=== PATIENT | male | born 1970 | race Caucasian/White ===

== ENCOUNTER 2018-11-05 11:59 | Day surgery (SDC) | payer OTHER ==
[~2018-11-05] VITALS: Ht 185.4 cm; Wt 140.6 kg
[~2018-11-05 11:59] MED LIST: CARB200CAP PO; CARB300C PO; KEPP1TAB2 PO; LOSA100T50; NS 1,000 ML IV ONE
[2018-11-05] MEDS ORDERED: LIDOCAINE 2% INJ 100 MG/5 ML SDV (FOR ANES.) As Ordered ONE (12:04)
[2018-11-05] MEDS ORDERED: PROPOFOL 200 MG/20 ML VIAL As Ordered ONE ×2 (12:04→13:27)
--- NOTE | 2018-11-05 13:50 | ROOR ---
Patient Name: Adolfo Aguero Procedure Date: 11/05/2018 1:19 PM Date of : 1970 Age: 48 Room: [facility] Gender: Male Note Status: Finalized Procedure: Colonoscopy Indications: Screening for colorectal malignant neoplasm Providers: Grey CASTILLO MD Referring MD: BETTY CHILEL DO Requesting Provider: Medicines: Monitored Anesthesia Care Complications: No immediate complications. Procedure: Pre-Anesthesia Assessment: - The heart rate, respiratory rate, oxygen saturations, blood pressure, adequacy of pulmonary ventilation, and response to care were monitored throughout the procedure. The Colonoscope was introduced through the anus and advanced to the cecum, identified by appendiceal orifice and ileocecal valve. The colonoscopy was performed without difficulty. The patient tolerated the procedure well. The quality of the bowel preparation was suboptimal/fair after extensive lavage. Findings: The perianal and digital rectal examinations were normal. (EXAM: Complete, PREP: Suboptimal) Three sessile polyps were found in the hepatic flexure and ascending colon. The polyps were 4 to 5 mm in size. These polyps were removed with a cold snare. Resection and retrieval were complete. Three sessile polyps were found in the descending colon and splenic flexure. The polyps were 4 to 5 mm in size. These polyps were removed with a cold snare. Resection and retrieval were complete. Two sessile polyps were found in the sigmoid colon. The polyps were 4 to 6 mm in size. These polyps were removed with a cold snare. Resection and retrieval were complete. The exam was otherwise without abnormality on direct and retroflexion views. Impression: - (EXAM: Complete, PREP: Suboptimal) - Three 4 to 5 mm polyps at the hepatic flexure and in the ascending colon, removed with a cold snare. Resected and retrieved. - Three 4 to 5 mm polyps in the descending colon and at the splenic flexure, removed with a cold snare. Resected and retrieved. - Two 4 to 6 mm polyps in the sigmoid colon, removed with a cold snare. Resected and retrieved. - The examination was otherwise normal on direct and retroflexion views. Recommendation: - Repeat colonoscopy in 2 years because the bowel preparation was suboptimal. - (Rec alternate colon preparation for next colonoscopy) Grey Castillo MD Grey CASTILLO MD 11/05/2018 1:49:42 PM Electronically signed by Grey CASTILLO MD Number of Addenda: 0 Note Initiated On: 11/05/2018 1:19 PM Estimated Blood Loss: Estimated blood loss: none.
[2018-11-05 14:10] VITALS: BP 140/97
== END 2018-11-05 14:17 | disposition home or self-care (01) ==
LOC: M OPP 11:59
PROVIDERS: ATTEND Internal Medicine Gastroenterology
DX: Z12.11 Encounter for screening for malignant neoplasm of colon (principal); D12.2 Benign neoplasm of ascending colon; D12.4 Benign neoplasm of descending colon; D12.3 Benign neoplasm of transverse colon; D12.5 Benign neoplasm of sigmoid colon; Z79.899 Other long term (current) drug therapy

== ENCOUNTER 2022-06-07 19:16 | Emergency (ER) | payer OTHER ==
[~2022-06-07] VITALS: Ht 185.4 cm; Wt 104.5 kg
[~2022-06-07 19:16] MED LIST changes: +LOSA100T45; -LOSA100T50; -NS 1,000 ML IV ONE
[2022-06-07 20:30] VITALS: BP 166/101
== END 2022-06-07 20:49 | disposition home or self-care (01) ==
LOC: M ED 19:16 → EDBD 19:16 → M ED 20:49
DX: Z04.1 Encounter for examination and observation following transport accident (principal); S00.01XA Abrasion of scalp, initial encounter; V89.2XXA Person injured in unspecified motor-vehicle accident, traffic, initial encounter; R56.9 Unspecified convulsions; Z79.899 Other long term (current) drug therapy; Z86.69 Personal history of other diseases of the nervous system and sense organs

== ENCOUNTER 2022-09-26 13:21 | Observation (INO) | payer OTHER ==
[~2022-09-26] VITALS: Ht 185.4 cm; Wt 148.2 kg
[~2022-09-26 13:21] MED LIST changes: -LOSA100T45; +LOSA100T46 PO
[2022-09-26] MEDS ORDERED: LIDOCAINE 1% MDV 20ML VIAL SC ONE (13:50)
[2022-09-26] MEDS ORDERED: LIDOCAINE 1% MDV 20ML VIAL As Ordered ONE (13:50)
[2022-09-26 14:08] LABS: BASO # 0.1 10^3/uL (0.0-0.2); BASO % 0.5 % (0.0-1.0); EOS # 0.1 10^3/uL (0.0-0.5); EOS % 1.5 % (0.0-3.0); HEMATOCRIT 41.6 % (42.0-52.0); LYMPH % 10.2 % (24.0-44.0); MEAN CORPUSCULAR HGB CONC 33.7 g/dl (32.0-36.5); MONO # 0.8 10^3/uL (0.0-0.8); MONO % 8.4 % (2.0-8.0); NEUTROPHILS # 7.4 10^3/uL (1.5-8.5); NEUTROPHILS % 78.8 % (36.0-66.0); PLATELET COUNT, AUTOMATED 176 10^3/uL (150-450); RED BLOOD COUNT 4.52 10^6/uL (4.30-6.10); WHITE BLOOD COUNT 9.4 10^3/uL (4.0-10.0)
[2022-09-26 14:34] LABS: ALBUMIN 4.1 G/DL (3.2-5.2); ALKALINE PHOSPHATASE 120 U/L (46-116); ALT/SGPT 26 U/L (7.0-40); AST/SGOT 18 U/L (<34); BILIRUBIN,DIRECT 0.2 MG/DL (<0.4); BILIRUBIN,TOTAL 0.5 MG/DL (0.3-1.2); BLOOD UREA NITROGEN 9 MG/DL (9-23); CALCIUM LEVEL 8.3 MG/DL (8.5-10.1); CARBON DIOXIDE LEVEL 29 MMOL/L (20-31); CHLORIDE LEVEL 104 MMOL/L (98-107); CREATININE FOR GFR 1.11 MG/DL (0.70-1.30); GLOMERULAR FILTRATION RATE > 60.0 (>56); GLUCOSE, FASTING 106 MG/DL (60-100); MAGNESIUM LEVEL 2.1 MG/DL (1.8-2.4); PHOSPHORUS LEVEL 3.1 MG/DL (2.5-4.9); POTASSIUM SERUM 4.4 MMOL/L (3.5-5.1); SODIUM LEVEL 139 MMOL/L (136-145); TOTAL PROTEIN 6.9 G/DL (5.7-8.2)
[2022-09-26] MEDS ORDERED: LABETALOL 100MG/20ML VIAL IV STA (15:41)
[2022-09-26 16:14] VITALS: BP 172/104
[2022-09-26] MEDS ORDERED: methylPREDNISolone 125MG 2ML VIAL IV ONE (17:10)
[2022-09-26] MEDS ORDERED: levETIRAcetam 250MG TABLET (KEPPRA) PO ONE (18:00)
[2022-09-26] MEDS ORDERED: PILL CUTTER 1 EACH XX ONE (18:12)
[2022-09-26] MEDS ORDERED: ACETAMINOPHEN TAB 650MG DOSE (2X325MG) PO PRN (18:25)
[2022-09-26] MEDS ORDERED: MORPHINE 2 MG/ML 1ML VIAL IV PRN (18:25)
[2022-09-26] MEDS ORDERED: HOME MED LIST COMPLETE! XX SCH (18:35)
[2022-09-26 19:12] LABS: RSV AMPLIFICATION NEGATIVE (NEGATIVE)
[2022-09-26 20:01] LABS: INR 0.97; PARTIAL THROMBOPLASTIN TIME 24.3 SECONDS (24.8-34.2); PROTHROMBIN TIME 13.1 SECONDS (12.5-14.5)
[2022-09-26 20:35] VITALS: BP 141/88
[2022-09-26] MEDS ORDERED: carBAMazepine XR 100 MG TAB PO SCH (21:00)
[2022-09-26] MEDS: carBAMazepine XR 200 MG TAB PO SCH (21:05)
[2022-09-27 00:22] VITALS: BP 133/68
[2022-09-27 04:29] VITALS: BP 137/71
[2022-09-27 06:38] LABS: HEMATOCRIT 38.2 % (42.0-52.0); HEMOGLOBIN 13.1 g/dl (13.5-17.5); MEAN CORPUSCULAR HEMOGLOBIN 31.6 pg (27.0-33.0); MEAN CORPUSCULAR HGB CONC 34.3 g/dl (32.0-36.5); MEAN CORPUSCULAR VOLUME 92.3 fl (80.0-96.0); PLATELET COUNT, AUTOMATED 165 10^3/uL (150-450); RED BLOOD COUNT 4.14 10^6/uL (4.30-6.10); WHITE BLOOD COUNT 8.5 10^3/uL (4.0-10.0)
[2022-09-27 07:13] LABS: ALBUMIN 3.6 G/DL (3.2-5.2); ALKALINE PHOSPHATASE 106 U/L (46-116); ALT/SGPT 26 U/L (7.0-40); AST/SGOT 19 U/L (<34); BILIRUBIN,TOTAL 0.7 MG/DL (0.3-1.2); BLOOD UREA NITROGEN 14 MG/DL (9-23); CALCIUM LEVEL 8.3 MG/DL (8.5-10.1); CARBON DIOXIDE LEVEL 26 MMOL/L (20-31); CHLORIDE LEVEL 104 MMOL/L (98-107); CREATININE FOR GFR 0.93 MG/DL (0.70-1.30); GLOMERULAR FILTRATION RATE > 60.0 (>56); GLUCOSE, FASTING 125 MG/DL (60-100); POTASSIUM SERUM 4.5 MMOL/L (3.5-5.1); SODIUM LEVEL 138 MMOL/L (136-145); TOTAL PROTEIN 6.4 G/DL (5.7-8.2)
[2022-09-27] MEDS ORDERED: ACET1TAB55 PO (07:15)
[2022-09-27] MEDS ORDERED: KEPP1TAB2 PO (07:15)
[2022-09-27] MEDS ORDERED: PRED20TA PO (07:15)
[2022-09-27 07:52] VITALS: BP 129/81
[2022-09-27] MEDS: carBAMazepine XR 200 MG TAB PO SCH (08:37)
[2022-09-27] MEDS ORDERED: levETIRAcetam 250MG TABLET (KEPPRA) PO SCH (09:00)
[2022-09-27] MEDS ORDERED: LOSARTAN 50MG TABLET PO SCH (09:00)
== END 2022-09-27 10:17 | disposition home or self-care (01) ==
LOC: M ED 13:21 → M ED INP 13:22 → M PCU 20:14
PROVIDERS: ADMIT Internal Medicine; ATTEND Internal Medicine
DX: G40.801 Other epilepsy, not intractable, with status epilepticus (principal); S01.112A Laceration without foreign body of left eyelid and periocular area, initial encounter; S12.8XXA Fracture of other parts of neck, initial encounter; W19.XXXA Unspecified fall, initial encounter; Y92.89 Other specified places as the place of occurrence of the external cause; Y99.0 Civilian activity done for income or pay; R13.10 Dysphagia, unspecified; I10 Essential (primary) hypertension; Z79.899 Other long term (current) drug therapy; Z79.52 Long term (current) use of systemic steroids; Y93.9 Activity, unspecified
CPT/HCPCS: 12011; 36415; 70450; 71045; 72125; 80048; 80053; 80076; 80156; 80180; 83735; 84100; 85025; 85027; 85610; 85730; 87631; 92526; 92610; 93005; 93041; 94760; 96372; 96374; 96375; 96376; 99285; J1100; J2930

== ENCOUNTER 2023-12-04 06:45 | Day surgery (SDC) | payer OTHER ==
[~2023-12-04] VITALS: Ht 185.4 cm; Wt 152.2 kg
[~2023-12-04 06:45] MED LIST changes: +ACET1TAB55 PO; +CARB200C4 PO; +HYDR12.55 PO; +MIDA5SPR; +PRED20TA PO
[2023-12-04] MEDS ORDERED: LIDOCAINE 2% 100MG/5ML SDV (FOR ANES.) As Ordered ONE (07:08)
[2023-12-04] MEDS ORDERED: propofoL 200 MG/20 ML VIAL As Ordered ONE (07:08)
[2023-12-04] MEDS: NS 1,000 ML IV ONE (07:30)
[2023-12-04 08:55] VITALS: BP 112/70; O2SAT 97
== END 2023-12-04 09:02 | disposition home or self-care (01) ==
LOC: M OPP 06:45
PROVIDERS: ATTEND Internal Medicine Gastroenterology
DX: Z12.11 Encounter for screening for malignant neoplasm of colon (principal); Z86.010 Personal history of colon polyps; D12.2 Benign neoplasm of ascending colon; D12.4 Benign neoplasm of descending colon; D12.5 Benign neoplasm of sigmoid colon; K64.8 Other hemorrhoids; Q43.8 Other specified congenital malformations of intestine; I10 Essential (primary) hypertension; Z86.69 Personal history of other diseases of the nervous system and sense organs; Z79.1 Long term (current) use of non-steroidal anti-inflammatories (NSAID); Z79.899 Other long term (current) drug therapy